=== PATIENT | female | born 1985 | race American Indian/Alaskan Native ===

== ENCOUNTER 2018-01-23 10:59 | Emergency (ER) | payer MEDICAID ==
[2018-01-23 10:59] VITALS: BMI 38.5
[2018-01-23 11:04] VITALS: TEMP 98.5; O2SAT 100
[2018-01-23] MEDS ORDERED: Sodium Chloride 0.9% 1,000 ML IV ONE (11:57)
[2018-01-23 12:08] LABS: BASO % 0.3 % (0.0-2.0); EOS % 0.4 % (0.0-4.0); LYMPH # 1.9 K/uL (1.0-4.3); LYMPH % 20.5 % (20.0-40.0); MEAN CELL VOLUME 87.4 fL (81.0-99.0); MEAN CORPUSCULAR HEMOGLOBIN 29.6 pg (27.0-31.0); MEAN CORPUSCULAR HGB CONC 33.8 g/dL (33.0-37.0); MEAN PLATELET VOLUME 8.1 fL (7.2-11.7); MONO # 0.8 K/uL (0.0-0.8); MONO % 8.2 % (0.0-10.0); NEUT # 6.7 K/uL (1.8-7.0); NEUT % 70.6 % (50.0-75.0); NRBC % 0.1 % (0.0-2.0); RBC 4.06 Mil/uL (3.80-5.20); RED CELL DISTRIBUTION WIDTH 14.8 % (11.5-14.5); WHITE BLOOD COUNT 9.5 K/uL (4.8-10.8)
[2018-01-23 12:17] LABS: SQUAMOUS EPITHIAL 25 /hpf (0-5); URINE BACTERIA RARE (<OCC); URINE BILIRUBIN NEGATIVE (NEGATIVE); URINE BLOOD NEGATIVE (NEGATIVE); URINE CLARITY Hazy (Clear); URINE COLOR Yellow (YELLOW); URINE GLUCOSE (UA) NORMAL (Normal); URINE LEUKOCYTE ESTERASE TRACE Leu/uL (Negative); URINE PROTEIN 1+ mg/dL (NEGATIVE)
[2018-01-23 12:19] LABS: INR 1.1; PROTHROMBIN TIME 11.9 SECONDS (9.7-12.2)
[2018-01-23 12:24] LABS: ALB/GLOB RATIO 1.2 (1.0-2.1); ALBUMIN 3.8 g/dL (3.5-5.0); ALT/SGPT 24 U/L (9-52); AST/SGOT 20 U/L (14-36); BLOOD UREA NITROGEN 5 mg/dL (7-17); CALCIUM 9.2 mg/dl (8.6-10.4); GFR AFRICAN-AMERICAN > 60; GFR NON-AFRICAN AMERICAN > 60; LIPASE 33 U/L (23-300)
[2018-01-23] MEDS ORDERED: Sodium Chloride 0.9% 1,000 ML ONE (12:37)
--- NOTE | 2018-01-23 13:31 | US ---
Date of service: 01/23/2018 PROCEDURE: Obstetrical ultrasound examination, limited HISTORY: abd. pain COMPARISON: Not available TECHNIQUE: Transabdominal FINDINGS: Ultrasound examination demonstrates a single live intrauterine gestation in breech presentation. The heart rate is 146 beats per minute. A grossly normal quantity of amniotic fluid is visualized. A normal anterior placenta is identified. There is no evidence of placenta previa. The cervix measures 3.8 cm in length and is closed. biometry demonstrates a gestational age of 17 weeks 6 days. The JOSE LUIS by ultrasound is 06/27/2018. The EFW is 216.85 g. Limited review of anatomy demonstrates fluid distending the stomach and urinary bladder. A 4 chamber heart is demonstrated. A three-vessel umbilical cord is demonstrated. The anterior abdominal wall is intact. No gross abnormality of the spine is demonstrated. Consider full anatomic evaluation at approximately 20 weeks gestational age. IMPRESSION: Single live intrauterine gestation of approximately 17 weeks 6 days without gross anatomic abnormality. Breech presentation. 146 beats per minute. Anterior placenta No placenta previa. Cervix closed.
[2018-01-23 13:47] VITALS: BP 106/69; PULSE 78; RESP 19
--- NOTE | 2018-01-23 13:52 | C.PDOC ---
History Of Present Illness 32 y/o female, ectopic 2, currently ~19 weeks , presents to the ED complaining of epigastric discomfort associated with nausea and vomiting that began today. Vomitus was described as mucus-like at first and then blood- tinged. Otherwise patient denies any vaginal bleeding, vaginal discharge, urinary symptoms, fever, chills, chest pain, or SOB. Time Seen by Provider: 01/23/18 11:42 Chief Complaint (Nursing): GI Problem History Per: Patient History/Exam Limitations: no limitations Onset/Duration Of Symptoms: Hrs Current Symptoms Are (Timing): Still Present Location Of Pain/Discomfort: Epigastric Associated Symptoms: Nausea, Vomiting Abnormal Vaginal Bleeding: No : 7 Para: 4 Miscarriage: 2 Past Medical History Reviewed: Historical Data, Nursing Documentation, Vital Signs Vital Signs: Last Vital Signs Temp 98.5 F 01/23/18 11:01 Pulse 78 01/23/18 13:46 Resp 19 01/23/18 13:46 BP 106/69 01/23/18 13:46 Pulse Ox 100 01/23/18 14:12 - Medical History PMH: Bronchitis Denies: Chronic Kidney Disease Surgical History: Family History: States: No Known Family Hx - Social History Hx Alcohol Use: Yes (Prior to ) Hx Substance Use: Yes (Prior to , marijuana) Review Of Systems Except As Marked, All Systems Reviewed And Found Negative. Gastrointestinal: Positive for: Nausea, Vomiting, Abdominal Pain Physical Exam - Physical Exam Appears: Non-toxic, No Acute Distress Skin: Normal Color, Warm, No Rash Head: Atraumatic, Normacephalic Eye(s): bilateral: Normal Inspection, PERRL, EOMI Oral Mucosa: Moist Neck: Normal ROM, Supple Chest: Symmetrical Cardiovascular: Rhythm Regular, No Murmur Respiratory: Normal Breath Sounds, No Rales, No Rhonchi, No Wheezing Gastrointestinal/Abdominal: Soft, Tenderness (mild epigastric tenderness), No Guarding, Other (Gravid uterus) Back: Normal Inspection Extremity: Bilateral: Atraumatic, Normal Color And Temperature, Normal ROM Neurological/Psych: Oriented x3, Normal Speech, Normal Cranial Nerves Gait: Steady ED Course And Treatment - Laboratory Results Result Diagrams: 01/23/18 12:03 01/23/18 12:03 O2 Sat by Pulse Oximetry: 100 (RA) Pulse Ox Interpretation: Normal - CT Scan/US OB Ultrasound Other Rad Studies (CT/US): Read By Radiologist, Radiology Report Reviewed CT/US Interpretation: Accession No. : [id number]. Patient Name / ID : RHIANNON ADAME C / [id number]. Exam Date : 01/23/2018 13:08:28 ( Approved ). Study Comment : Sex / Age : F / 32Y. Creator : David Moreno MD. Dictator : David Moreno MD. Warehouse Worker : Director Of Medical Staff Services : David Moreno MD. Approver2 : Report Date : 01/23/2018 13:29:21. My Comment : . Date of service: 01/23/2018. PROCEDURE: Obstetrical ultrasound examination, limited. HISTORY: abd. pain. COMPARISON: Not available. TECHNIQUE: Transabdominal. FINDINGS: Ultrasound examination demonstrates a single live intrauterine gestation in breech presentation. The heart rate is 146 beats per minute. A grossly normal quantity of amniotic fluid is visualized. A normal anterior placenta is identified. There is no evidence of placenta previa. The cervix measures 3.8 cm in length and is closed. biometry demonstrates a gestational age of 17 weeks 6 days. The JOSE LUIS by ultrasound is 06/27. The EFW is 216.85 g. Limited review of anatomy demonstrates fluid distending the stomach and urinary bladder. A 4 chamber heart is demonstrated. A three-vessel umbilical cord is demonstrated. The anterior abdominal wall is intact. No gross abnormality of the spine is demonstrated. Consider full anatomic evaluation at approximately 20 weeks gestational age. IMPRESSION: Single live intrauterine gestation of approximately 17 weeks 6 days without gross anatomic abnormality. Breech presentation. 146 beats per minute. Anterior placenta No placenta previa. Cervix closed. Medical Decision Making Medical Decision Making: Impression: Vomiting during Initial Plan: * CMP * CBC * Lipase * PTT * PT * Beta-HCG * Blood type/screen * UA * Urine culture * IV fluids * 4 mg IV Zofran * 10mg IV Reglan * 40 mg IV Protonix * US OB Progress: Labs reviewed, Hb is stable. Ultrasound done, copy of report provided to patient. On reevaluation patient reports improvement in symptoms and feels comfortably with discharge home. Counseled patient regarding diagnosis and follow up instructions. There is agreement to plan. Disposition Counseled Patient/Family Regarding: Studies Performed, Diagnosis, Need For Followup, Rx Given - Disposition Referrals: [facility] [Outside] Disposition: HOME/ ROUTINE Disposition Time: 13:51 Condition: STABLE Additional Instructions: follow up with medical clinic within 2 days you must call to make an appointment take medication as needed for pain return to ER if symptoms worsens or progress Prescriptions: Famotidine [Pepcid] 20 mg PO BID #20 tab Metoclopramide HCl [Reglan] 10 mg PO TID PRN #15 tablet PRN Reason: Nausea/Vomiting Instructions: Nausea and Vomiting of (DC) Forms: [facility] (Persian), General Discharge Instructions - POA Present On Arrival: None - Clinical Impression Clinical Impression: Vomiting affecting - Scribe Statement The provider has reviewed the documentation as recorded by the Scribe (Halina Hicks) Provider Attestation: All medical record entries made by the Scribe were at my direction and personally dictated by me. I have reviewed the chart and agree that the record accurately reflects my personal performance of the history, physical exam, medical decision making, and the department course for this patient. I have also personally directed, reviewed, and agree with the discharge instructions and disposition.
== END 2018-01-23 14:46 | disposition home or self-care (01) ==
LOC: C.ER 10:59
DX: O21.9 Vomiting of pregnancy, unspecified (principal); Z3A.20 20 weeks gestation of pregnancy
CPT/HCPCS: 76815; 80053; 81001; 83690; 84702; 85025; 85610; 85730; 86850; 86900; 87086; 96361; 96374; 96375; 99284; C9113; J2765; J7030